=== PATIENT | female | born 1990 | race Caucasian/White ===

== ENCOUNTER 2020-12-01 23:51 | Emergency (ER) | payer OTHER ==
[~2020-12-01 23:51] MED LIST: BENTYL 20MG TAB20 MG PO; CLINDAMYCIN HC150 MG PO; FLAGYL500 MG PO; IBUPROFEN600 MG PO; LODINE CAP 300300 MG PO; MUCINEX DM ER1 EAC1 PO; NORFLEX 100 MG100 MG PO; OMNICEF 300 MG300 MG PO; PRENATABS RX T1 EACH PO; VENTOLIN HFA 66.7 GM INH; ZOFRAN ODT 4 MG4 MG SL; ZOFRAN4 MG PO
== END 2020-12-02 01:53 | disposition home or self-care (01) ==
LOC: ER1 23:51
DX: S00.01XA Abrasion of scalp, initial encounter (principal); F17.200 Nicotine dependence, unspecified, uncomplicated; W22.8XXA Striking against or struck by other objects, initial encounter
CPT/HCPCS: 70450; 99284

== ENCOUNTER → 2021-09-16 | Outpatient (CLI) | payer OTHER ==
[2021-09-16 10:12] LABS: HEMOGLOBIN 15.1 gm/dl (12.3-15.3); RED BLOOD COUNT 4.92 M/UL (4.00-5.10); WHITE BLOOD COUNT 7.6 K/UL (4.5-11.0)
== END ==
LOC: OPSV2 09:00
PROVIDERS: Obstetrics & Gynecology
DX: Z01.812 Encounter for preprocedural laboratory examination (principal); A63.0 Anogenital (venereal) warts
CPT/HCPCS: 36415; 81001; 85025

== ENCOUNTER → 2021-09-23 | Day surgery (SDC) | payer OTHER ==
[~2021-09-23] MED LIST changes: +ANECREAM530 GM TP; +HYDROCODON-ACE1 EAC2 PO
== END | disposition home or self-care (01) ==
LOC: OR 07:30
DX: A63.0 Anogenital (venereal) warts (principal); B19.20 Unspecified viral hepatitis C without hepatic coma; F17.210 Nicotine dependence, cigarettes, uncomplicated
CPT/HCPCS: 84703; J2250; J3010